=== PATIENT | male | born 1980 | race Caucasian/White ===

== ENCOUNTER → 2023-12-31 09:23 | Outpatient (REF) | payer BC, SELFPAY ==
[2023-12-31 10:14] LABS: % Basophils 0.8 % (0-2); % Eosinophils 7.3 % (0-6); % Immature Granulocytes 0.2 % (0-0.5); % Lymphocytes 42.2 % (20.5-51.1); % Neutrophils 43.5 % (42.2-75.2); Absolute Eosinophils 0.4 10^3/uL (0-0.7); Absolute Lymphocytes 2.2 10^3/uL (1.2-3.4); Absolute Monocytes 0.3 10^3/uL (0.1-0.6); Absolute Neutrophils 2.3 10^3/uL (1.4-6.5); Hematocrit 43.4 % (39.0-52.0); Hemoglobin 14.2 g/dL (13.0-18.0); Mean Corp Hgb Conc. 32.7 g/dL (33.0-37.0); Mean Corpuscular Hgb 24.2 pg (27.0-31.0); Mean Corpuscular Volume 73.9 fL (80.0-94.0); Mean Platelet Volume 9.9 fL (7.4-10.4); Nucleated Red Blood Cells % 0 % (-); Platelet Count 236 10^3/uL (130-400); Red Blood Cell Count 5.87 10^6/uL (4.70-6.10); Red Cell Dist. Width 14.3 % (11.5-14.5); White Blood Cell Count 5.3 10^3/uL (4.8-10.8)
[2023-12-31 10:46] LABS: ALT (SGPT) 34 U/L (0-50); AST (SGOT) 25 U/L (17-59); Albumin 4.8 g/dl (3.5-5.0); Alkaline Phosphatase 58 U/L (38-126); Blood Urea Nitrogen 14 mg/dl (9-20); Calcium 10.1 mg/dl (8.4-10.2); Carbon Dioxide 31 mmol/L (22-30); Chloride 100 mmol/L (98-107); Glucose 99 mg/dl (70-99); HDL Cholesterol 38 mg/dl; LDL Cholesterol, Calculated 111 mg/dl; Potassium 4.8 mmol/L (3.5-5.1); Sodium 139 mmol/L (135-145); Total Bilirubin 0.4 mg/dl (0.2-1.3); Total Cholesterol 179 mg/dl (50-199); Total Protein 7.9 g/dl (6.3-8.2); Triglyceride 151 mg/dl (10-149); Very Low Density Lipoprotein 30 mg/dl (0-30); eGFR > 60.00
[2023-12-31 11:08] LABS: TSH 3.63 uIU/ml (0.47-4.68)
[2024-01-01 19:23] LABS: PSA Total 1.5 ng/mL (0.0-4.0)
== END ==
LOC: REG 09:23
PROVIDERS: ATTENDING PHYSICIAN Internal Medicine
DX: Z00.00 Encounter for general adult medical examination without abnormal findings (principal); E78.5 Hyperlipidemia, unspecified; Z12.5 Encounter for screening for malignant neoplasm of prostate; R53.83 Other fatigue
CPT/HCPCS: 36415; 80053; 80061; 84153; 84154; 84443; 85025

== ENCOUNTER → 2024-02-14 16:15 | Outpatient (REF) | payer BC, SELFPAY | LOC: CLAB 16:15 | PROVIDERS: ATTENDING PHYSICIAN Internal Medicine | DX: N39.0 Urinary tract infection, site not specified (principal) | CPT/HCPCS: 87086 ==

== ENCOUNTER → 2024-02-25 13:57 | Outpatient (REF) | payer BC, SELFPAY ==
[2024-02-25 14:40] LABS: Urine Albumin Negative (Neg - Trace); Urine Bilirubin Negative (Negative); Urine Character Clear (Clear); Urine Color Yellow; Urine Glucose Negative (Negative); Urine Ketone Negative (Negative); Urine Leukocyte 1+ (Negative); Urine Nitrite Negative (Negative); Urine Occult Blood Negative (Negative); Urine Urobilinogen Negative (Neg - 1+)
[2024-02-25 15:23] LABS: Urine Amorphous Seen; Urine Red Blood Cell 0-2 /HPF (0-2); Urine Squamous Cell 0-2 /LPF (Few)
== END ==
LOC: REG 13:57
PROVIDERS: ATTENDING PHYSICIAN Specialist
DX: R31.29 Other microscopic hematuria (principal)
CPT/HCPCS: 81003; 81015

== ENCOUNTER → 2025-01-06 08:14 | Outpatient (REF) | payer BC, SELFPAY ==
[2025-01-06 09:53] LABS: % Basophils 1.1 % (0-2); % Eosinophils 7.2 % (0-6); % Lymphocytes 47.2 % (20.5-51.1); % Neutrophils 37.5 % (42.2-75.2); Absolute Basophils 0.1 10^3/uL (0-0.2); Absolute Eosinophils 0.4 10^3/uL (0-0.7); Absolute Lymphocytes 2.6 10^3/uL (1.2-3.4); Absolute Monocytes 0.4 10^3/uL (0.1-0.6); Hematocrit 45.3 % (39.0-52.0); Hemoglobin 14.2 g/dL (13.0-18.0); Mean Corp Hgb Conc. 31.3 g/dL (33.0-37.0); Mean Corpuscular Hgb 23.9 pg (27.0-31.0); Mean Corpuscular Volume 76.3 fL (80.0-94.0); Mean Platelet Volume 10.2 fL (7.4-10.4); Nucleated Red Blood Cells % 0 % (-); Platelet Count 231 10^3/uL (130-400); Red Blood Cell Count 5.94 10^6/uL (4.70-6.10); Red Cell Dist. Width 14.5 % (11.5-14.5); White Blood Cell Count 5.4 10^3/uL (4.8-10.8)
[2025-01-06 10:23] LABS: ALT (SGPT) 32 U/L (0-50); AST (SGOT) 25 U/L (17-59); Albumin 4.7 g/dl (3.5-5.0); Alkaline Phosphatase 62 U/L (38-126); Blood Urea Nitrogen 16 mg/dl (9-20); Calcium 9.8 mg/dl (8.4-10.2); Carbon Dioxide 30 mmol/L (22-30); Chloride 107 mmol/L (98-107); Glucose 90 mg/dl (70-99); HDL Cholesterol 32 mg/dl; LDL Cholesterol, Calculated 102 mg/dl; Potassium 5.1 mmol/L (3.5-5.1); Sodium 147 mmol/L (135-145); Total Bilirubin 0.5 mg/dl (0.2-1.3); Total Cholesterol 153 mg/dl (50-199); Total Protein 7.6 g/dl (6.3-8.2); Triglyceride 98 mg/dl (10-149); Very Low Density Lipoprotein 19 mg/dl (0-30); eGFR > 60.00
[2025-01-06 10:55] LABS: PSA, Total - Screen 1.86 ng/ml (0.0-4.0)
== END ==
LOC: REG 08:14
PROVIDERS: ATTENDING PHYSICIAN Internal Medicine
DX: Z00.00 Encounter for general adult medical examination without abnormal findings (principal); M54.2 Cervicalgia; E78.5 Hyperlipidemia, unspecified; K21.9 Gastro-esophageal reflux disease without esophagitis; R73.03 Prediabetes; Z12.5 Encounter for screening for malignant neoplasm of prostate
CPT/HCPCS: 36415; 80053; 80061; 83036; 84443; 85025; G0103

== ENCOUNTER 2025-01-19 08:52 | Emergency (ER) | payer BC, SELFPAY ==
[2025-01-19 08:54] VITALS: BP 140/105
--- NOTE | 2025-01-19 09:55 | ED.GENMED ---
History of Present Illness
General
Chief Complaint: Cold/Flu/URI Symptoms
Source: patient
Exam Limitations: none
Time Seen by Provider: 01/19/25 09:03
Nursing documentation reviewed up to this point in time: agreed with
History of Present Illness
History of Present Illness:
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 He noticed a small cut to his hand work with
HIV-positive patient. He is unsure of how well treated the patient is unsure what type of clot and how he sustained it. He has some mild upper respiratory symptoms over the past few days though is unsure if this is related. Denies any known
history of any infectious diseases. No other symptoms otherwise.
Review of Systems
Review of Systems
Allergies reviewed?: Yes
All Other Systems: ROS reviewed and negative except as documented in HPI and ROS
Phy Exam
Physical Exam
Physical Exam:
GENERAL: Alert , in no apparent distress
EYE: pupils equal and reactive
NECK: Supple, no significant adenopathy.
ENT: o/p clr, mmm.
CARDIAC: Regular rate and rhythm .
LUNGS: Clear breath sounds bilaterally, no acute respiratory distress, no wheezes/rales/rhonchi
ABDOMEN: Soft, without focal tenderness, no r/g, no cvat
NEUROLOGICAL: Alert and oriented, no focal neuro deficits
SKIN: Warm and dry, skin intact.
MUSCULOSKELETAL: No edema, well perfused.
PSYCH: Normal and appropriate interaction.
Course
Orders/Labs/Results
Orders:
Orders
01/19/25 09:33
HIV Combo Urgent
Hepatitis B Core Ab, IgM Urgent
Hepatitis B Surface Antibody Urgent
Hepatitis B Surface Antigen Urgent
Hepatitis C Antibody Urgent
Vital Signs
Initial and Last Documented VS:
Initial Vital Signs
Temp Pulse Resp BP Pulse Ox
98.0 F 109 16 140/105 98
01/19/25 08:54 01/19/25 08:54 01/19/25 08:54 01/19/25 08:54 01/19/25 08:54
Last Documented Vital Signs
Temp Pulse Resp BP Pulse Ox
98.0 F 109 16 140/105 98
01/19/25 08:54 01/19/25 08:54 01/19/25 08:54 01/19/25 08:54 01/19/25 08:54
MDM/Problems Addressed
MDM/Problems Addressed:
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 He is seeking testing at this for this. He is not seeking postexposure prophylaxis at this point. He is
also had some mild upper respiratory symptoms. He was recommended to take medications for symptoms and stay hydrated and get plenty of rest for this otherwise no emergent findings seen. Plan for outpatient follow-up.
The patient was contacted about his labs being negative here he is. He was advised for outpatient follow-up for repeated testing as well.
*Critical Care Note
Total Time (30-74mins, 75-104mins- exclusive of procedures): Not Applicable
ED Attending Note
-
Portions of this chart may have been created with voice recognition software.� Occasional wrong word or��sound alike� substitutions may have occurred due to the inherent limitations of voice recognition software.
Discharge Plan
Departure
Patient Disposition: Home (Routine Discharge)
Date of Disposition: 01/19/25
Time of Disposition: 09:55
Patient with high blood pressure during this ER visit?: No
Condition: Good
Covid-19: Not Applicable
Discharge Problem:
Exposure to HIV
Instructions: Exposure to HIV or hepatitis through blood or body fluids
Referrals:
David Rico MD [Family Provider] -
Activity Restrictions/Additional Instructions:
You came to the emergency department today with concerns of potential HIV exposure 5 weeks ago. Here you had testing. Will contact you about the results. You will need follow-up for repeated testing. Return for any worsening, new or concerning
symptoms.
Interventions
Interventions:
*Risk Screen - Suicide Last Done: 01/19/25 08:54
*Neglect/Abuse Screening Last Done: 01/19/25 08:54
*Nursing Disposition Last Done: 01/19/25 10:07
ED- Pulmonary Assessment Last Done: 01/19/25 09:22
Discharge Date and Time
Discharge Date/Time: 01/19/25 10:07
Print Language: [employer]INE[employer]
[2025-01-19 10:31] LABS: Hepatitis B Surface Antigen Negative (Negative)
[2025-01-19 10:34] LABS: Hepatitis B Core Ab, IgM Negative (Negative)
[2025-01-19 10:48] LABS: Hepatitis B Surface Antibody Negative; Hepatitis C Antibody Negative (Negative)
[2025-01-19 10:51] LABS: HIV Combo Negative (Negative)
== END 2025-01-19 10:07 | disposition home or self-care (01) ==
LOC: EMR 08:52
PROVIDERS: Physician Assistant; EMERGENCY PHYSICIAN Emergency Medicine; FAMILY PHYSICIAN Internal Medicine
DX: Z20.6 Contact with and (suspected) exposure to human immunodeficiency virus [HIV] (principal); Y99.0 Civilian activity done for income or pay; I10 Essential (primary) hypertension; E78.5 Hyperlipidemia, unspecified
CPT/HCPCS: 99283; 86705; 86706; 86803; 87340; 87389

== ENCOUNTER → 2025-03-10 07:30 | Outpatient (REF) | payer BC, SELFPAY ==
[2025-03-10 12:19] LABS: HIV Combo Negative (Negative)
[2025-03-12 18:43] LABS: Hepatitis B Surface Antigen Negative (Negative)
[2025-03-12 19:01] LABS: Hepatitis B Core Ab, Total Negative (Negative); Hepatitis B Surface Antibody Positive; Hepatitis C Antibody Negative (Negative)
== END ==
LOC: REG 07:30
PROVIDERS: ATTENDING PHYSICIAN Internal Medicine
DX: T14.90XA Injury, unspecified, initial encounter (principal); R10.13 Epigastric pain; K21.9 Gastro-esophageal reflux disease without esophagitis; Z86.19 Personal history of other infectious and parasitic diseases
CPT/HCPCS: 36415; 83013; 86704; 86706; 86803; 87340; 87389

== ENCOUNTER → 2025-03-12 13:01 | Outpatient (REF) | payer BC, SELFPAY ==
[2025-03-14 16:46] LABS: H. pylori Breath Test Negative (Negative)
== END ==
LOC: REG 13:01
PROVIDERS: ATTENDING PHYSICIAN Internal Medicine
DX: Z86.19 Personal history of other infectious and parasitic diseases (principal)
CPT/HCPCS: 83013

== ENCOUNTER → 2025-09-21 10:29 | Outpatient (REF) | payer BC, SELFPAY ==
[2025-09-21 12:10] LABS: Hepatitis B Surface Antigen Negative (Negative)
[2025-09-21 12:28] LABS: Hepatitis C Antibody Negative (Negative)
== END ==
LOC: REG 10:29
PROVIDERS: ATTENDING PHYSICIAN Internal Medicine
DX: T14.90XA Injury, unspecified, initial encounter (principal)
CPT/HCPCS: 36415; 86704; 86706; 86803; 87340; 87389